=== PATIENT | female | born 1985 | race Caucasian/White ===

== ENCOUNTER → 2021-01-10 03:06 | Outpatient (CLI) | payer OTHER, SELFPAY ==
[2021-01-10 18:36] LABS: SARS-CoV-2 RNA PCR Positive
== END ==
PROVIDERS: PCP Family Medicine; Visit Provider Family Medicine
DX: U07.1 COVID-19 (principal)
CPT/HCPCS: C9803; U0003; U0005

== ENCOUNTER 2021-04-16 08:48 | Emergency (ER) | payer OTHER, SELFPAY ==
[2021-04-16 09:03] VITALS: BP 105/56; PULSE 93; RESP 16; TEMP 37.4; O2SAT 99
--- NOTE | 2021-04-16 10:01 | ED.NAVMDI ---
HPI - Nausea/Vomiting/Diarrhea General Chief complaint: Nausea/Vomiting/Diarrhea Stated complaint: abd pain/chills Time Seen by Provider: 04/16/21 10:16 Source: patient Mode of arrival: ambulatory Limitations: no limitations History of Present Illness HPI Narrative: Coby Green is a 36 yo female with no PMH who comes to express care with vomiting between 330 and 530 this morning which she vomited up everything that she had eaten yesterday since that time has been able to keep water down and has been drinking tea and has had no further vomiting diarrhea or nausea. She states her esophagus kind of lal from where she threw up and she has had some chills but is afebrile and states that she does not feel the greatest at this moment; Related Data Home Medications Medication Instructions Recorded Confirmed No Home Medications 04/16/21 04/16/21 Allergies Allergy/AdvReac Type Severity Reaction Status Date / Time No Known Allergies Allergy Verified 04/16/21 09:35 Review of Systems Review of Systems: CONSTITUTIONAL: Denies fever, chills, sweats. EYES: Denies visual changes, redness, discharge. ENT: Denies rhinorrhea, congestion, sore throat, otalgia. CARDIOVASCULAR: Denies chest pain, palpitations, edema. RESPIRATORY: Denies dyspnea, wheezing, cough GASTROINTESTINAL: Denies abdominal pain, nausea, vomiting, diarrhea. Vomiting for 5 times between 330 and 530 this morning but since then has been able to keep fluids down GENITOURINARY: Denies dysuria, hematuria, abnormal discharge SKIN: Denies rash or itching. NEUROLOGIC: Denies numbness, or focal weakness. PSYCHIATRIC: Denies anxiety or depression. PMFSH Past Medical History Medical History No acute medical problems Social History Social History (Updated 04/16/21 @ 10:26 by Nichole Archuleta CNP) Smoking status: Never smoker Comments At time of signature, I agree with nursing past medical, surgical, social and family history. There is no relevant family history pertinent to the presenting complaint. Exam Narrative: GENERAL: This is a well-nourished, well-developed patient, in mild distress. HEAD: normocephalic, atraumatic. EYES: Sclera clear/white. Vision is grossly intact. EARS: External ears normal, Hearing grossly intact. NOSE: External nose normal without nasal discharge, nares without redness, no rhinorrhea. THROAT: Mucous membranes moist, NECK: Neck supple, CARDIOVASCULAR: Regular rate and rhythm without murmurs, gallops, or rubs. RESPIRATORY: Clear to auscultation. Breath sounds equal bilaterally. No wheezes, rales, or rhonchi. GASTROINTESTINAL: Abdomen soft, SKIN: warm, intact with no suspicious lesions or rash, good texture and turgor. NEURO: awake, alert, and oriented to person, place and time. There were no obvious focal neurologic abnormalities. Steady gait EXTREMITIES: Normal range of motion. BACK: Nontender without deformity Course Course Emergency Course: Patient here with vomiting between 330 and 5:30 in the morning but has since then been able to take fluids orally Is discussed continued hydration and monitoring or temperature; use ibuprofen or Tylenol for discomfort if needed If continued of symptoms should consider getting tested Level of Care: Express Care Visit Vital Signs Vital signs: Vital Signs Temperature 99.4 F 04/16/21 09:03 Pulse Rate 93 04/16/21 09:03 Respiratory Rate 16 04/16/21 09:03 Blood Pressure 105/56 L 04/16/21 09:03 Pulse Oximetry 99 04/16/21 09:03 Temperature 99.4 F 04/16/21 09:03 Pulse Rate 93 04/16/21 09:03 Respiratory Rate 16 04/16/21 09:03 Blood Pressure 105/56 L 04/16/21 09:03 Pulse Oximetry 99 04/16/21 09:03 MDM - Nausea/Vomiting/Diarrhea Differential Diagnosis Differential diagnosis: Likely traveler's diarrhea, food poisoning and gastroenteritis Critical Care Time Critical Care Time Critical Care Time: N
== END 2021-04-16 10:55 | disposition home or self-care (01) ==
PROVIDERS: Emergency Provider Nurse Practitioner; PCP Nurse Practitioner Family
DX: R11.10 Vomiting, unspecified (principal)
CPT/HCPCS: 99211; G0463

== ENCOUNTER → 2021-06-16 07:45 | Outpatient (CLI) | payer OTHER, SELFPAY ==
--- NOTE | ~2021-06-16 | MMUS_ITS ---
EXAMINATION: MM diagnostic gina BI w naeem, US breast RT limited HISTORY: Palpable right breast abnormality TECHNIQUE: Additional 3-D tomosynthesis images of the breasts were performed and synthetic 2-D images were generated. CAD analysis was submitted and interpreted. High resolution Limited right breast ult rasound was performed. COMPARISON: None BREAST PARENCHYMAL COMPOSITION: The breasts are heterogenously dense, which may obscure small masses FINDINGS: MAMMOGRAPHIC FINDINGS: The left breast is unremarkable without evidence for malignancy. There is a focal mass in the mid out er aspect of the right breast corresponding to the area of palpable concern, partially obscured by fi broglandular tissue. ULTRASOUND: Limited right breast ultrasound: At 10:00, 4 cm from the nipple there is an oval circumscribed hypoec hoic mass with peripheral vascularity measuring 1.6 x 1.5 x 0.7 cm. IMPRESSION: 1. Right breast mass present located at 10:00, 4 cm from the nipple in the area of palpable concern m easuring 1.6 cm maximum dimension. 2. Ultrasound-guided right breast biopsy recommended. BI-RADS category 4, suspicious findings. Reviewed, dictated and finalized at location A. REPAIRER IMPRESSION: 1. Right breast mass present located at 10:00, 4 cm from the nipple in the area of palpable concern measuring 1.6 cm maximum dimension. 2. Ultrasound-guided right breast biopsy recommended. BI-RADS category 4, suspicious findings.
== END ==
PROVIDERS: PCP Nurse Practitioner Family; Visit Provider Nurse Practitioner Family
DX: N63.10 Unspecified lump in the right breast, unspecified quadrant (principal); R92.8 Other abnormal and inconclusive findings on diagnostic imaging of breast
CPT/HCPCS: 76642; 77062; 77066; G0279

== ENCOUNTER 2021-06-26 13:05 | Outpatient (CLI) | payer OTHER, SELFPAY ==
--- NOTE | ~2021-06-26 | MMUS_ITS ---
EXAMINATION: US breast biopsy RT w image, MM post biopsy invasive RT DATE: 06/26/2021 14:27 (accession [id number]), 06/26/2021 14:19 (accession [id number]) INDICATION: Indeterminate mass in the upper outer quadrant of the right breast. Ultrasound-guided cor e biopsy is requested to evaluate for malignancy. TECHNIQUE AND FINDINGS: The risks and potential benefits of the procedure were discussed with the patient including bleeding and infection. A time out was performed. The skin of the right breast was prepared and draped in usua l sterile fashion. 1% lidocaine was used for superficial anesthesia. 1% lidocaine with epinephrine wa s used for deep anesthesia. A vacuum-assisted biopsy gun needle was advanced through to the outer edge of the region of interest from a superior/inferior/medial/lateral/superolateral/superomedial/inferolateral/inferomedial approac h utilizing sonographic guidance. A total of four tissue core samples were obtained through the lesio n. A tissue marker clip was then placed at the biopsy site. Hemostasis was achieved. A sterile bandag e was applied. The patient tolerated procedure well and there was no evidence of immediate complication. The patient was given verbal instructions to return to the Emergency Department in the event of severe breast pa in or rapid breast enlargement. A two view right breast mammogram was obtained to document tissue mar ker clip placement. IMPRESSION: 1. Successful ultrasound-guided vacuum-assisted biopsy of right breast mass with tissue marker placem ent. Reviewed, dictated and finalized at location A. IMPRESSION: 1. Successful ultrasound-guided vacuum-assisted biopsy of right breast mass wit h tissue marker placement.
== END 2021-06-26 13:06 | disposition home or self-care (01) ==
LOC: ANHIMG 13:09
PROVIDERS: PCP Nurse Practitioner Family; Visit Provider Physician Assistant
DX: R92.8 Other abnormal and inconclusive findings on diagnostic imaging of breast (principal)
CPT/HCPCS: 19083; 88305; A4648